=== PATIENT | female | born 1960 | race Caucasian/White ===

== ENCOUNTER 2018-11-24 10:39 | Observation (INO) ==
[2018-11-24] MEDS ORDERED: Ipratropium/Albuterol Neb 3 ML IH ONE (11:21)
[2018-11-24] MEDS ORDERED: Piperacillin/Tazobactam 3.375 GM in Water for inj. (sterile) 20 ML IVP ONE (11:21)
[2018-11-24] MEDS ORDERED: 0.9 % Sodium Chloride 1,000 ML IVC ONE (11:21)
[2018-11-24] MEDS ORDERED: methylPREDNISolone 125 MG/2 ML VIAL IVP ONE (11:21)
[2018-11-24] MEDS ORDERED: Isovue-370 500 ML BOTTLE IVP ONE (11:21)
--- NOTE | 2018-11-24 11:29 | Emergency Department Note ---
Disposition Clinical Impression: Acute exacerbation of chronic obstructive airways disease Disposition: Admitted As Inpatient Condition: Fair Time of Disposition: 17:00 General Adult HPI - General Chief complaint: ED Shortness of Breath/Dyspnea Stated complaint: dyspnea Time Seen by Provider: 11/24/18 10:56 Source: patient, family Limitations: no limitations Nursing Notes Reviewed: Yes Vital Signs Reviewed: Yes - History of Present Illness HPI Narrative: Presents with shortness of breath and she does have a history of COPD and does use home oxygen. Of note she is also been diagnosed with sleep apnea but is not wearing a sleep apnea mask. She did have surgery on her ear and had an overnight stay on November 07 and now has shortness of breath, blood-streaked clear sputum, no complaint of chest pain. No pain or swelling of the lower extremities. No orthopnea. No weight gain. Shortness of breath is worse with exertion. She does use home oxygen and she has decreased her amount of cigarette smoking. Does have rhinorrhea and sneezing. Does have complaint of blood in the stool which is red in color however she is not able to describe further than this. No fever or blurred vision. No pain or numbness of extremities. No skin rash or bruising of the skin. Social history: Smoker Pain Scale: 0 - Related Data Home Medications Medication Instructions Recorded Confirmed Budesonide/Formoterol 160/4.5 2 puff IH BID 01/29/16 11/24/18 [Symbicort 160/4.5] Albuterol Sulfate [Ventolin Hfa] 2 puff IH Q4H PRN 11/07/18 11/24/18 Previous Rx's Medication Instructions Recorded Ibuprofen [Motrin] 600 mg PO Q6HR PRN #60 tab 11/07/18 Allergies Allergy/AdvReac Type Severity Reaction Status Date / Time No Known Allergies Allergy Verified 07/02/18 13:13 Review of Systems: Constitutional: No fever Vision: No blurred vision ENT: + rhinorrhea Respiratory: + cough Allergic: + allergies/sneezing : No blood in urine GI: + blood in stool Hematologic: No bruising Dermatologic: No skin rash Musculoskeletal: No pain in the extremities Neuro: No numbness of the extremities Past Medical History - Past Medical History Medical history: Reports: arthritis, asthma, cancer, COPD, GERD, hypertension, malignancy, osteoporosis, other Surgical history: Reports: appendectomy, breast surgery, cancer surgery, cholecystectomy, herniorrhaphy, other Psychiatric history: Reports: no psych history CLINICAL CARE LEADER history: Reports: bilateral tubal ligation - Social History Smoking Status: Current every day smoker Smokeless Tobacco Status: No Alcohol use: Reports: none Drug use: Reports: none Physical Exam CONSTITUTIONAL: Alert and oriented X3, well-nourished, well appearing, does have minimal to moderate respiratory distress in the room on oxygen 2 L nasal cannula but current oxygen saturation is 99%. Head: atraumatic. EYES: PERRL, no scleral icterus. NOSE: The nose is normal in appearance without rhinorrhea RESP: Normal chest excursion with respiration; breath sounds with bilateral symmetric expiratory wheezing CARD: Regular rhythm, without murmurs, rub or gallop ABD: Non-distended; non-tender, soft,without rigidity, rebound or guarding SKIN: Normal for age and race; warm and dry; no apparent lesions EXTREMITIES: Pulses are 2 plus and equal times 4 extremities, no peripheral edema or calf muscle pain. - General Limitations: no limitations General appearance: alert, in no apparent distress Course Vital Signs Temperature 98.4 F 11/24/18 10:40 Pulse Rate 72 11/24/18 10:40 Respiratory Rate 22 11/24/18 10:40 Blood Pressure 145/73 11/24/18 10:40 O2 Sat by Pulse Oximetry 93 11/24/18 10:40 Temperature 98.7 F 11/24/18 16:07 Pulse Rate 79 11/24/18 16:07 Respiratory Rate 16 11/24/18 16:07 Blood Pressure 143/75 11/24/18 16:07 O2 Sat by Pulse Oximetry 93 11/24/18 16:07 Oxygen Delivery Oxygen Delivery Nasal Cannula Medical Decision Making - [facility] Narrative Medical decision making narrative: Patient will have a EKG, CT scan of the chest, labs for further evaluation of possible pulmonary embolism, electrolyte or CBC abnormalities and as she is dyspneic will need to be admitted. I did write for sign Medrol, DuoNeb as well as Zosyn which should also cover for pseudomonas and she did have pseudomonas UTI over the summer. She is also recently in the hospital. As she was only in overnight I will not at this point treat for MRSA however that can be expanded if necessary pending test results and further inpatient evaluation. 1130 I did review the EKG showing normal sinus rhythm with a rate of 78 and with isolated T-wave inversion in lead aVL and this is similar to previous EKG from November 07 with some flattening in lead aVL 1135 - Lab Data Result diagrams: 11/24/18 11:05 11/24/18 11:05 Lab Results 11/24/18 11/24/18 Range/Units 11:05 11:05 WBC 12.0 H (4.3-11.1) K/mcL RBC 5.36 H (3.82-4.97) M/mcL Hgb 15.3 (11.5-15.4) g/dL Hct 48.6 H (35.3-44.9) % MCV 90.7 (83.0-100.0) fL MCH 28.5 (28.0-33.3) pg MCHC 31.5 L (31.6-35.5) g/dL RDW 14.5 (11.5-14.5) % Plt Count 291 (140-400) K/mcL MPV 10.2 (9.4-12.4) fL Immature Gran % 1.5 (0-4) % Seg Neutrophils % 56.2 % Lymphocytes % 30.7 % Monocytes % 8.1 % Eosinophils % 2.9 % Basophils % 0.6 % Neutrophils # 6.8 (1.6-8.9) K/mcL Lymphocytes # 3.7 (0.6-4.6) K/mcL Monocytes # 1.0 (0.0-1.3) K/mcL Eosinophils # 0.4 (0.0-0.6) K/mcL Basophils # 0.1 (0.0-0.2) K/mcL Sodium 140 (136-145) mEq/L Potassium 4.1 (3.5-5.1) mEq/L Chloride 102 (98-107) mEq/L Carbon Dioxide 30 H (23-29) mEq/L BUN 12 (8-23) mg/dL Creatinine 0.70 (0.60-1.20) mg/dL Est GFR ( Amer) > 60 (> 60) Est GFR (Non-Af Amer) > 60 (> 60) BUN/Creatinine Ratio 17 (6-26) Glucose 103 (70-105) mg/dL Calculated Osmolality 290 (280-300) Calcium 9.2 (8.6-10.3) mg/dL Troponin I < 0.03 (< 0.04) ng/mL
[2018-11-24 12:07] LABS: Basophils # 0.1 K/mcL (0.0-0.2); Basophils % 0.6 %; Eosinophils # 0.4 K/mcL (0.0-0.6); Eosinophils % 2.9 %; Hematocrit 48.6 % (35.3-44.9); Hemoglobin 15.3 g/dL (11.5-15.4); Immature Granulocytes % 1.5 % (0-4); Lymphocytes # 3.7 K/mcL (0.6-4.6); Lymphocytes % 30.7 %; Mean Corpuscular HGB Conc 31.5 g/dL (31.6-35.5); Mean Corpuscular Hemoglobin 28.5 pg (28.0-33.3); Mean Corpuscular Volume 90.7 fL (83.0-100.0); Mean Platelet Volume 10.2 fL (9.4-12.4); Monocytes % 8.1 %; Neutrophils # 6.8 K/mcL (1.6-8.9); Platelet Count 291 K/mcL (140-400); Red Blood Count 5.36 M/mcL (3.82-4.97); Red Cell Distribution Width 14.5 % (11.5-14.5); Segmented Neutrophils % 56.2 %
[2018-11-24 12:20] LABS: BUN/Creatinine Ratio 17 (6-26); Blood Urea Nitrogen 12 mg/dL (8-23); Calcium 9.2 mg/dL (8.6-10.3); Carbon Dioxide 30 mEq/L (23-29); Chloride 102 mEq/L (98-107); Glucose 103 mg/dL (70-105); Osmolality,Calculated 290 (280-300); Potassium 4.1 mEq/L (3.5-5.1); Sodium 140 mEq/L (136-145); eGFR For African Americans > 60 (> 60); eGFR For Non-African Americans > 60 (> 60)
[2018-11-24 12:21] LABS: Troponin I < 0.03 ng/mL (< 0.04)
[2018-11-24] MEDS ORDERED: Naloxone 0.4 MG/ML INJ IVP PRN (14:30)
--- NOTE | 2018-11-24 14:36 | Internal Med History&Physical ---
Date of Encounter: 11/24/18 Time of Encounter: 14:37 Internal Medicine - H&P: HPI Chief complaint: SOB Admitted From: Home Plans for Post Hospital Care: Home History of present illness: Ms. Orr is a 58 year old female with a PMHx of COPD on home O2 2l, CARRIE not using her CPAP machine, GERD, OA and Osteoporosis who presents with a 5 day hx of worsening SOB with associated cough. Cough is productive of clear sputum. Patient states she was discharged from [facility] 10 days ago after being admitted for similar symptoms. She reports subjective fever but denies chills, chest pain, palpitations and lightheadedness.. Patient smokes less than half a pack of cigarettes daily She used to be a 2 pack a day smoker and hopes to eventually quit. Past Med Surg Social Fam HX - Past Medical History Medical history: arthritis, asthma, cancer, COPD, GERD, hypertension, malignancy, osteoporosis, other Additional medical history: pelvic pain in femal, thickened endometrium polyp, PMB. CARRIE. tobacco dependency. emphysema. history of urethral hypermobility,cystocele, relaxed vaginal outlet, uterovaginal prolapse, weak pubocervical fascia. hx of breast cancer. irregular heart beat Psychiatric history: no psych history - Past Surgical History Surgical History: appendectomy, breast surgery, cancer surgery, cholecystectomy, herniorrhaphy, other Additional surgical history: L breast lumpectomy. tubal ligation D&C. colonoscopy. mesh. mesh removal - Social History Smoking Status: Current every day smoker Smokeless Tobacco Status: No Alcohol use: none Drug use: none - Additional Family History Additional family history: Reviewed and noncontributory Internal Medicine - H&P: Meds Budesonide/Formoterol 160/4.5 [Symbicort 160/4.5] 2 puff IH BID 01/29/16 [History] Albuterol Sulfate [Ventolin Hfa] 2 puff IH Q4H PRN 11/07/18 [History] Ibuprofen [Motrin] 600 mg PO Q6HR PRN #60 tab 11/07/18 [Rx] Allergy/AdvReac Type Severity Reaction Status Date / Time No Known Allergies Allergy Verified 07/02/18 13:13 All Systems PM: A 10-system review of systems was performed and is negative for pertinent findings except as documented above in the HPI. Review of systems: GENERAL: No weight loss HEENT: No rhinorrhea, No sore throat, No ear pain or discharge, No dysphagia or odynophagia PULMONARY: Admits cough, admits chest pain, admits Sputum production, admits dyspnea on exertion CARDIOVASCULAR: No chest pain, no palpitations, No PND, No orthopnea GASTROINTESTINAL: No abdominal pain, No nausea, No vomiting, No constipation, No diarrhea, No hematemesis, No hematochezia MUSKULOSKELETAL: No edema, No swelling, No pain INTEGUMENTARY: No new skin lesions NERVOUS SYSTEM: No Dizziness, No weakness, No slurred speech, No diplopia or blurred/ loss vision, No numbness, No tinglng sensation. - Constitutional Vitals: Temp Pulse Resp BP Pulse Ox 36.9 C 76 17 127/83 100 11/24/18 10:40 11/24/18 14:04 11/24/18 14:04 11/24/18 14:04 11/24/18 14:04 Exam: GENERAL: Not in distress. Alert and Oriented HEENT: EOMI, PERRLA MOUTH: Moist oral mucosa NECK:No JVD, No lymph nodes. CHEST AND LUNGS: Bilateral scattered wheezes, no crackles HEART: S1 and S2 normal, no murmurs ABDOMEN: Soft, nontender, no organomegaly SKIN: Normal color, no rashes, no lesions EXTREMITIES: No deformity, no edema, no tenderness, no joint swelling or clubbing NEUROLOGICAL: Normal cognition, normal motor and sensory exam. Internal Med - H&P Results - Labs CBC & Chem 7: 11/24/18 11:05 11/24/18 11:05 Labs: Short CBC 11/24/18 Range/Units 11:05 WBC 12.0 H (4.3-11.1) K/mcL Hgb 15.3 (11.5-15.4) g/dL Hct 48.6 H (35.3-44.9) % Plt Count 291 (140-400) K/mcL Neutrophils # 6.8 (1.6-8.9) K/mcL BMP 11/24/18 11:05 Sodium 140 Potassium 4.1 Chloride 102 Carbon Dioxide 30 H BUN 12 Creatinine 0.70 Glucose 103 Calcium 9.2 Cardiac Enzymes 11/24/18 Range/Units 11:05 Troponin I < 0.03 (< 0.04) ng/mL - Impressions ITS Impressions Chest X-Ray 11/24/18 11:44 IMPRESSION: No acute process. D/ / Kady Crystal MD / Kayd Crystal MD Interpreting Provider: Kady Crystal MD Chest CTA 11/24/18 13:23 IMPRESSION: No acute pulmonary artery embolism. 1. Lingular bronchiectasis with endobronchial impaction potentially mucoid. D/ / Trae Mccabe MD / Trae Mccabe MD Interpreting Provider: Trae Mccabe MD - Assessment and Plan (1) Acute exacerbation of chronic obstructive airways disease Current Visit: No Status: Acute Assessment and plan: Pt with a hx of COPD presenting with worsenig SOB and productive cough. Denies fever and chills Bilateral wheezing on exam. On Oxygen via NC. 2L which is home flow rate Will give solumedrol, Azithromycin and breathing treatments. Monitor Will consider sending for pulmonary rehab after discharge. (2) CARRIE (obstructive sleep apnea) Current Visit: Yes Status: Acute Assessment and plan: Patient does not use her CPAP machine because she states it blows too much air. Patient to follow up with ui application developer as outpatient. (3) Nicotine dependence with nicotine-induced disorder Current Visit: No Status: Chronic Assessment and plan: Patient states that she is making attempts to quit and has reduced to less than half a pack a day from 2 acks. She has been counseled on a harmful effects of tobacco smoking and informed of the available options for quitting. Qualifiers: Nicotine product type: cigarettes Qualified Code(s): F17.219 - Nicotine dependence, cigarettes, with unspecified nicotine-induced disorders (4) Obesity (BMI 30-39.9) Current Visit: No Status: Chronic Assessment and plan: Counseled the weight loss options available. (5) Chronic respiratory failure with hypoxia and hypercapnia Current Visit: Yes Status: Acute Assessment and plan: Patient's COPD on home oxygen 2 L. Currently remains on 2 L on my encounter. She has COPD with CARRIE as well as obesity and most likely retains carbon dioxide at her baseline. Give breathing treatments and steroids for COPD. Monitor - Summary of Assessment and Plan Summary of Assessment and Plan: SQ Heparin - Time Spent With Patient Total time spent is greater than 50% in coordination of care (as documented) at patient's floor/unit and/or counseling patient:
[2018-11-24] MEDS: Ipratropium/Albuterol Neb 3 ML IH SCH ×2 (15:35→19:42)
[2018-11-24] MEDS ORDERED: Azithromycin 500 MG in 0.9 % Sodium Chloride 250 ML IVPB SCH (16:00)
[2018-11-24] MEDS: methylPREDNISolone 125 MG/2 ML VIAL IVP SCH ×2 (16:32→23:51)
[2018-11-25] MEDS: Ipratropium/Albuterol Neb 3 ML IH SCH ×4 (00:04→11:03)
[2018-11-25 01:40] LABS: Basophils % 0.2 %; Eosinophils % 0.1 %; Hematocrit 45.2 % (35.3-44.9); Hemoglobin 14.2 g/dL (11.5-15.4); Immature Granulocytes % 2.2 % (0-4); Lymphocytes # 1.2 K/mcL (0.6-4.6); Lymphocytes % 9.6 %; Mean Corpuscular HGB Conc 31.4 g/dL (31.6-35.5); Mean Corpuscular Hemoglobin 28.9 pg (28.0-33.3); Mean Corpuscular Volume 91.9 fL (83.0-100.0); Mean Platelet Volume 9.8 fL (9.4-12.4); Monocytes # 0.2 K/mcL (0.0-1.3); Monocytes % 1.6 %; Neutrophils # 10.3 K/mcL (1.6-8.9); Platelet Count 264 K/mcL (140-400); Red Blood Count 4.92 M/mcL (3.82-4.97); Red Cell Distribution Width 14.6 % (11.5-14.5); Segmented Neutrophils % 86.3 %; White Blood Count 11.9 K/mcL (4.3-11.1)
[2018-11-25 02:03] LABS: BUN/Creatinine Ratio 13 (6-26); Blood Urea Nitrogen 14 mg/dL (8-23); Calcium 9.2 mg/dL (8.6-10.3); Carbon Dioxide 26 mEq/L (23-29); Chloride 102 mEq/L (98-107); Glucose 273 mg/dL (70-105); Osmolality,Calculated 302 (280-300); Potassium 3.8 mEq/L (3.5-5.1); Sodium 141 mEq/L (136-145); eGFR For African Americans > 60 (> 60); eGFR For Non-African Americans 53 (> 60)
[2018-11-25] MEDS ORDERED: Acetaminophen 325 MG TABLET PO PRN (06:04)
[2018-11-25] MEDS: methylPREDNISolone 125 MG/2 ML VIAL IVP SCH (08:09)
[2018-11-25 10:52] VITALS: BP 111/62
--- NOTE | 2018-11-25 11:33 | Discharge Summary ---
- NOTES TO OUTPATIENT PROVIDER Notes to Outpatient Provider: Follow up with PCP in one week. Please quit smoking. Date of Encounter: 11/25/18 Time of Encounter: 11:00 - Discharge Diagnosis (1) Acute bronchitis Priority: Primary Status: Acute Qualifiers: Bronchitis organism: unspecified organism Qualified Code(s): J20.9 - Acute bronchitis, unspecified (2) Acute exacerbation of chronic obstructive airways disease Priority: Primary Status: Acute (3) Chronic respiratory failure with hypoxia and hypercapnia Priority: Primary Status: Acute (4) CARRIE (obstructive sleep apnea) Priority: Secondary Status: Acute (5) Nicotine dependence with nicotine-induced disorder Priority: Secondary Status: Chronic Qualifiers: Nicotine product type: cigarettes Qualified Code(s): F17.219 - Nicotine dependence, cigarettes, with unspecified nicotine-induced disorders (6) Obesity (BMI 30-39.9) Priority: Secondary Status: Chronic Hospital course: Ms. Orr is a 58 year old female with a PMHx of COPD on home O2 2l, CARRIE not using her CPAP machine, GERD, OA and Osteoporosis patient presented to ER with a 5 day hx of worsening SOB with associated cough. Cough is productive of clear sputum. In the ER her chest x-ray did not show any consolidations / acute abnormalities. Her CTA of chest showed lingular bronchiectasis with endobronchial impaction potentially mucoid. She was admitted in the hospital and started her on systemic steroids and empirical IV antibiotic. Patient is feeling much better today, back to her b aseline. She is currently breathing comfortably on 2 lit oxygen through nasal cannula which is her baseline. I did crisis counselor her to quit smoking and recommend to follow up with the business management consultant as an outpatient for her bronchiectasis. Will discharge her home in a stable condition today - Time Spent with Patient Total time spent providing and/or coordinating discharge services: - Discharge Medications Prescriptions: New levoFLOXacin [Levaquin] 500 mg PO DAILY #3 tablet Nicotine Patch [Nicoderm] 21 mg TD DAILY #30 patch.td24 predniSONE [PredniSONE] 40 mg PO DAILY #10 tablet Continued Budesonide/Formoterol 160/4.5 [Symbicort 160/4.5] 2 puff IH BID Albuterol Sulfate [Ventolin Hfa] 2 puff IH Q4H PRN PRN Reason: Shortness Of Breath Ibuprofen [Motrin] 600 mg PO Q6HR PRN #60 tab PRN Reason: Pain Home Medications: Budesonide/Formoterol 160/4.5 [Symbicort 160/4.5] 2 puff IH BID 01/29/16 [History] Albuterol Sulfate [Ventolin Hfa] 2 puff IH Q4H PRN 11/07/18 [History] Ibuprofen [Motrin] 600 mg PO Q6HR PRN #60 tab 11/07/18 [Rx] Nicotine Patch [Nicoderm] 21 mg TD DAILY #30 patch.td24 11/25/18 [Rx] levoFLOXacin [Levaquin] 500 mg PO DAILY #3 tablet 11/25/18 [Rx] predniSONE [PredniSONE] 40 mg PO DAILY #10 tablet 11/25/18 [Rx] Allergies/Adverse Reactions: Allergy/AdvReac Type Severity Reaction Status Date / Time No Known Allergies Allergy Verified 07/02/18 13:13 Date of admission: 11/24/18 14:13 Primary care physician: Simone Tran MD Consults: 11/25/18 09:43 Consult to Nurse Navigator [CONS] Routine Comment: COPD - Constitutional Vitals: Temp Pulse Resp BP Pulse Ox 98.5 F 74 16 111/62 93 11/25/18 10:50 11/25/18 10:50 11/25/18 11:03 11/25/18 10:50 11/25/18 11:03 General appearance: Present: cooperative, A&O X 3, no acute distress, answers questions appropriately Exam: Gen: Alert, awake, Oriented to time,place and person Chest: Diminished breath sounds B/L, Mild to moderate wheezing, No crackles, No rales Heart: S1S2+ RRR No murmurs Abd: Soft, NT, BS +, No organomegaly Ext: No edema, pulses are palpable, No calf tenderness Neuro : No acute focal neuro deficits noticed Skin: No rash. - Patient Status Disposition: Home, Self-Care Condition: Good Overall status at discharge: patient is back to baseline - Discharge Instructions Follow Up With: Siomne Tran MD [Primary Care Provider] - Cynthia Middleton MD [Partnered Physician] - - Diet and Activity Activity: increase activity as tolerated Diet: low salt diet
--- NOTE | 2018-11-26 09:47 | Electrocardiograph Report ---
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
== END 2018-11-25 12:45 | disposition home or self-care (01) ==
LOC: 3BNU 10:39 → EMEROOARM 10:39 → SUATTDRO 14:13 → 3BNU 15:00
PROVIDERS: ADMIT Internal Medicine; ATTEND Family Medicine

== ENCOUNTER 2019-02-21 18:28 | Observation (INO) ==
[2019-02-21] MEDS ORDERED: Ipratropium/Albuterol Neb 3 ML IH ONE ×2 (18:49→20:18)
[2019-02-21] MEDS ORDERED: Albuterol 2.5 MG/3 ML NEBULIZER IH ONE (18:49)
[2019-02-21] MEDS ORDERED: methylPREDNISolone 125 MG/2 ML VIAL IVP ONE (18:49)
[2019-02-21 19:48] LABS: Basophils % 0.4 %; Eosinophils # 0.1 K/mcL (0.0-0.6); Eosinophils % 1.3 %; Hemoglobin 15.3 g/dL (11.5-15.4); Immature Granulocytes % 1.5 % (0-4); Lymphocytes # 1.8 K/mcL (0.6-4.6); Lymphocytes % 21.9 %; Mean Corpuscular HGB Conc 32.6 g/dL (31.6-35.5); Mean Corpuscular Hemoglobin 29.5 pg (28.0-33.3); Mean Corpuscular Volume 90.7 fL (83.0-100.0); Mean Platelet Volume 9.7 fL (9.4-12.4); Monocytes # 0.2 K/mcL (0.0-1.3); Monocytes % 1.9 %; Neutrophils # 5.8 K/mcL (1.6-8.9); Platelet Count 282 K/mcL (140-400); Red Blood Count 5.18 M/mcL (3.82-4.97); Red Cell Distribution Width 14.8 % (11.5-14.5)
[2019-02-21 19:57] LABS: INR 0.9; Prothrombin Time 9.9 Seconds (9.4-12.1)
[2019-02-21 20:10] LABS: Alanine Aminotransferase 34 Units/L (7-52); Albumin 3.8 g/dL (3.5-5.7); Albumin/Globulin Ratio 1.4 (1.1-2.2); Alkaline Phosphatase 97 Units/L (34-104); Aspartate Amino Transferase 25 Units/L (13-39); BUN/Creatinine Ratio 19 (6-26); Bilirubin,Direct 0.1 mg/dL (0.0-0.2); Bilirubin,Indirect 0.2 mg/dL (0.0-1.0); Bilirubin,Total 0.3 mg/dL (0.3-1.0); Blood Urea Nitrogen 14 mg/dL (8-23); Calcium 9.2 mg/dL (8.6-10.3); Carbon Dioxide 29 mEq/L (23-29); Chloride 105 mEq/L (98-107); Globulin 2.8 g/dL (2.4-3.5); Glucose 139 mg/dL (70-105); Osmolality,Calculated 293 (280-300); Potassium 4.1 mEq/L (3.5-5.1); Sodium 140 mEq/L (136-145); Total Protein 6.6 g/dL (6.4-8.9); eGFR For African Americans > 60 (> 60); eGFR For Non-African Americans > 60 (> 60)
[2019-02-21 20:11] LABS: Troponin I < 0.03 ng/mL (< 0.04)
[2019-02-21] MEDS ORDERED: Ondansetron 4 MG/2 ML VIAL IVP PRN (22:33)
[2019-02-21] MEDS ORDERED: Acetaminophen 325 MG TABLET PO PRN (22:33)
[2019-02-21] MEDS ORDERED: GuaiFENesin Liq 200 MG/10 ML UDC PO PRN (22:33)
[2019-02-22] MEDS: Ipratropium/Albuterol Neb 3 ML IH SCH ×7 (00:05→19:53)
[2019-02-22] MEDS: Ringers Solution, Lactated 1,000 ML IVC SCH ×2 (00:56→19:15)
[2019-02-22] MEDS: MethylPREDNISolone 40 MG/ML VIAL IVP SCH ×2 (05:25→17:21)
[2019-02-22] MEDS: *HR* Heparin 5,000 UNIT/ML VIAL SQ SCH ×2 (05:25→17:21)
[2019-02-22] MEDS: Cholecalciferol (D-3) 1,000 UNIT (25MCG) TABLET PO SCH (08:57)
[2019-02-22] MEDS: Azithromycin 500 MG in D5% in Water 250 ML IVPB SCH (08:57)
[2019-02-22] MEDS: Budesonide/Formoterol 160/4.5 1 PUFF INH IH SCH ×2 (11:49→19:53)
[2019-02-23] MEDS: Ipratropium/Albuterol Neb 3 ML IH SCH ×4 (00:25→11:17)
[2019-02-23] MEDS: MethylPREDNISolone 40 MG/ML VIAL IVP SCH (05:14)
[2019-02-23] MEDS: *HR* Heparin 5,000 UNIT/ML VIAL SQ SCH (05:14)
[2019-02-23] MEDS: Budesonide/Formoterol 160/4.5 1 PUFF INH IH SCH (07:21)
[2019-02-23 07:31] VITALS: BP 146/77
[2019-02-23] MEDS: Azithromycin 500 MG in D5% in Water 250 ML IVPB SCH (08:34)
[2019-02-23] MEDS: Cholecalciferol (D-3) 1,000 UNIT (25MCG) TABLET PO SCH (08:35)
[2019-02-23 09:33] LABS: Adenovirus Not Detected (Not Detect); Bordetella Pertussis Not Detected (Not Detect); Chlamydophila pneumoniae Not Detected (Not Detect); Coronavirus 229E Not Detected (Not Detect); Coronavirus HKU1 DETECTED (Not Detect); Coronavirus NL63 Not Detected (Not Detect); Coronavirus OC43 Not Detected (Not Detect); Human Metapneumovirus Not Detected (Not Detect); Human Rhinovirus/Enterovirus Not Detected (Not Detect); Influenza A Subtype 2009 H1 Not Detected (Not Detect); Influenza A Untypeable Not Detected (Not Detect); Influenza B Not Detected (Not Detect); Mycoplasma pneumoniae Not Detected (Not Detect); Parainfluenza Virus 1 Not Detected (Not Detect); Parainfluenza Virus 2 Not Detected (Not Detect); Parainfluenza Virus 3 Not Detected (Not Detect); Parainfluenza Virus 4 Not Detected (Not Detect); Respiratory Syncytial Virus Not Detected (Not Detect)
== END 2019-02-23 11:32 | disposition home or self-care (01) ==
LOC: EMEROOARM 18:28 → 3BNU 18:28 → SUATTDRO 21:56 → 3BNU 23:40
PROVIDERS: ADMIT Internal Medicine; ATTEND Internal Medicine

== ENCOUNTER 2019-05-03 21:38 | Observation (INO) ==
[2019-05-03] MEDS ORDERED: Ipratropium/Albuterol Neb 3 ML IH ONE (22:14)
[2019-05-03 22:45] LABS: Basophils % 0.6 %; Eosinophils % 0.3 %; Hematocrit 44.9 % (35.3-44.9); Hemoglobin 13.9 g/dL (11.5-15.4); Immature Granulocytes % 0.6 % (0-4); Lymphocytes # 1.1 K/mcL (0.6-4.6); Lymphocytes % 16.9 %; Mean Corpuscular Hemoglobin 28.3 pg (28.0-33.3); Mean Corpuscular Volume 91.4 fL (83.0-100.0); Mean Platelet Volume 10.2 fL (9.4-12.4); Monocytes # 0.6 K/mcL (0.0-1.3); Monocytes % 10.1 %; Neutrophils # 4.5 K/mcL (1.6-8.9); Platelet Count 204 K/mcL (140-400); Red Blood Count 4.91 M/mcL (3.82-4.97); Red Cell Distribution Width 14.4 % (11.5-14.5); Segmented Neutrophils % 71.5 %; White Blood Count 6.2 K/mcL (4.3-11.1)
[2019-05-03 23:06] LABS: BUN/Creatinine Ratio 16 (6-26); Blood Urea Nitrogen 14 mg/dL (8-23); Calcium 8.5 mg/dL (8.6-10.3); Carbon Dioxide 26 mEq/L (23-29); Chloride 105 mEq/L (98-107); Glucose 114 mg/dL (70-105); Osmolality,Calculated 289 (280-300); Sodium 139 mEq/L (136-145); eGFR For African Americans > 60 (> 60); eGFR For Non-African Americans > 60 (> 60)
[2019-05-03 23:08] LABS: Troponin I < 0.03 ng/mL (< 0.04)
[2019-05-04] MEDS ORDERED: Naloxone 0.4 MG/ML INJ IVP PRN (01:55)
[2019-05-04] MEDS: Acetaminophen 325 MG TABLET PO PRN ×2 (02:44→10:52)
[2019-05-04] MEDS: Levalbuterol Neb 1.25 MG/3 ML IH SCH ×4 (04:22→22:06)
[2019-05-04] MEDS: *HR* Enoxaparin 40 MG/0.4 ML SYRINGE SQ SCH (06:58)
[2019-05-04] MEDS: predniSONE 20 MG TABLET PO SCH (09:26)
[2019-05-04] MEDS: Cholecalciferol (D-3) 1,000 UNIT (25MCG) TABLET PO SCH (09:26)
[2019-05-04] MEDS: Budesonide/Formoterol 160/4.5 1 PUFF INH IH SCH ×2 (10:14→22:06)
[2019-05-04] MEDS: Tiotropium 18 MCG inhalation IH SCH (10:14)
[2019-05-05] MEDS: Levalbuterol Neb 1.25 MG/3 ML IH SCH ×2 (03:40→10:00)
[2019-05-05] MEDS: Acetaminophen 325 MG TABLET PO PRN (05:44)
[2019-05-05] MEDS: *HR* Enoxaparin 40 MG/0.4 ML SYRINGE SQ SCH (05:44)
[2019-05-05 06:42] VITALS: BP 118/70
[2019-05-05] MEDS: predniSONE 20 MG TABLET PO SCH (09:07)
[2019-05-05] MEDS: Cholecalciferol (D-3) 1,000 UNIT (25MCG) TABLET PO SCH (09:07)
[2019-05-05] MEDS: Budesonide/Formoterol 160/4.5 1 PUFF INH IH SCH (10:00)
[2019-05-05] MEDS: Tiotropium 18 MCG inhalation IH SCH (10:08)
== END 2019-05-05 10:44 | disposition home or self-care (01) ==
LOC: EMEROOARM 21:38 → 3ANU 21:38 → SUATTDRO 05-04 00:24 → 3ANU 05-04 01:28
PROVIDERS: ADMIT Internal Medicine; ATTEND Student in an Organized Health Care Education/Training Program

== ENCOUNTER 2019-05-16 09:28 | Observation (INO) ==
[2019-05-16] MEDS ORDERED: Ipratropium/Albuterol Neb 3 ML IH ONE (10:00)
[2019-05-16] MEDS ORDERED: 0.9 % Sodium Chloride 1,000 ML IV ONE (10:00)
[2019-05-16 10:47] LABS: Basophils # 0.1 K/mcL (0.0-0.2); Basophils % 0.5 %; Eosinophils # 0.2 K/mcL (0.0-0.6); Eosinophils % 1.3 %; Hematocrit 42.4 % (35.3-44.9); Hemoglobin 13.2 g/dL (11.5-15.4); Immature Granulocytes % 1.2 % (0-4); Lymphocytes # 3.4 K/mcL (0.6-4.6); Lymphocytes % 20.3 %; Mean Corpuscular HGB Conc 31.1 g/dL (31.6-35.5); Mean Platelet Volume 9.1 fL (9.4-12.4); Monocytes # 1.4 K/mcL (0.0-1.3); Monocytes % 8.3 %; Neutrophils # 11.5 K/mcL (1.6-8.9); Platelet Count 258 K/mcL (140-400); Red Blood Count 4.71 M/mcL (3.82-4.97); Red Cell Distribution Width 15.1 % (11.5-14.5); Segmented Neutrophils % 68.4 %; White Blood Count 16.8 K/mcL (4.3-11.1)
[2019-05-16 11:06] LABS: Alanine Aminotransferase 12 Units/L (7-52); Albumin 3.4 g/dL (3.5-5.7); Albumin/Globulin Ratio 1.2 (1.1-2.2); Alkaline Phosphatase 75 Units/L (34-104); Aspartate Amino Transferase 8 Units/L (13-39); BUN/Creatinine Ratio 20 (6-26); Bilirubin,Total 0.8 mg/dL (0.3-1.0); Blood Urea Nitrogen 14 mg/dL (8-23); Calcium 8.8 mg/dL (8.6-10.3); Carbon Dioxide 27 mEq/L (23-29); Chloride 106 mEq/L (98-107); Globulin 2.8 g/dL (2.4-3.5); Glucose 104 mg/dL (70-105); Osmolality,Calculated 287 (280-300); Potassium 3.7 mEq/L (3.5-5.1); Sodium 138 mEq/L (136-145); Total Protein 6.2 g/dL (6.4-8.9); Troponin I < 0.03 ng/mL (< 0.04); eGFR For African Americans > 60 (> 60); eGFR For Non-African Americans > 60 (> 60)
[2019-05-16] MEDS ORDERED: Piperacillin/Tazobactam 3.375 GM in Water for inj. (sterile) 20 ML IVP ONE (12:27)
[2019-05-16] MEDS ORDERED: Ondansetron 4 MG/2 ML VIAL IVP PRN (12:39)
[2019-05-16] MEDS ORDERED: Naloxone 0.4 MG/ML INJ IVP PRN (12:39)
[2019-05-16] MEDS: Piperacillin/Tazobactam 3.375 GM in 0.9 % Sodium Chloride Mini Bag 100 ML IVPB SCH ×2 (14:50→21:22)
[2019-05-16] MEDS: 0.9 % Sodium Chloride w KCl 20 MEQ/1,000 ML MLS IVC SCH (15:05)
[2019-05-16] MEDS: Ipratropium/Albuterol Neb 3 ML IH SCH ×2 (15:35→22:02)
[2019-05-16 17:40] LABS: Adenovirus Not Detected (Not Detect); Coronavirus 229E Not Detected (Not Detect); Coronavirus HKU1 Not Detected (Not Detect); Coronavirus NL63 Not Detected (Not Detect); Coronavirus OC43 Not Detected (Not Detect); Human Metapneumovirus Not Detected (Not Detect); Human Rhinovirus/Enterovirus Not Detected (Not Detect)
[2019-05-16 17:42] LABS: Bordetella Pertussis Not Detected (Not Detect); Chlamydophila pneumoniae Not Detected (Not Detect); Influenza A Subtype 2009 H1 DETECTED (Not Detect); Influenza B Not Detected (Not Detect); Mycoplasma pneumoniae Not Detected (Not Detect); Parainfluenza Virus 1 Not Detected (Not Detect); Parainfluenza Virus 2 Not Detected (Not Detect); Parainfluenza Virus 3 Not Detected (Not Detect); Parainfluenza Virus 4 Not Detected (Not Detect); Respiratory Syncytial Virus Not Detected (Not Detect)
[2019-05-16] MEDS ORDERED: *HR* Heparin 5,000 UNIT/ML VIAL SQ SCH (22:00)
[2019-05-16] MEDS: Budesonide/Formoterol 160/4.5 1 PUFF INH IH SCH (22:02)
[2019-05-17 03:07] LABS: Basophils # 0.1 K/mcL (0.0-0.2); Basophils % 0.5 %; Eosinophils # 0.2 K/mcL (0.0-0.6); Eosinophils % 1.3 %; Hematocrit 38.5 % (35.3-44.9); Hemoglobin 11.9 g/dL (11.5-15.4); Immature Granulocytes % 0.9 % (0-4); Lymphocytes # 2.4 K/mcL (0.6-4.6); Lymphocytes % 17.1 %; Mean Corpuscular HGB Conc 30.9 g/dL (31.6-35.5); Mean Corpuscular Hemoglobin 28.4 pg (28.0-33.3); Mean Corpuscular Volume 91.9 fL (83.0-100.0); Mean Platelet Volume 9.8 fL (9.4-12.4); Monocytes # 1.2 K/mcL (0.0-1.3); Monocytes % 8.2 %; Neutrophils # 10.2 K/mcL (1.6-8.9); Platelet Count 209 K/mcL (140-400); Red Blood Count 4.19 M/mcL (3.82-4.97); Red Cell Distribution Width 15.1 % (11.5-14.5); White Blood Count 14.2 K/mcL (4.3-11.1)
[2019-05-17] MEDS: Ipratropium/Albuterol Neb 3 ML IH SCH ×3 (03:07→22:42)
[2019-05-17 03:24] LABS: BUN/Creatinine Ratio 14 (6-26); Blood Urea Nitrogen 10 mg/dL (8-23); Calcium 8.3 mg/dL (8.6-10.3); Carbon Dioxide 25 mEq/L (23-29); Chloride 108 mEq/L (98-107); Glucose 115 mg/dL (70-105); Osmolality,Calculated 286 (280-300); Potassium 3.9 mEq/L (3.5-5.1); Sodium 138 mEq/L (136-145); eGFR For African Americans > 60 (> 60); eGFR For Non-African Americans > 60 (> 60)
[2019-05-17] MEDS: 0.9 % Sodium Chloride w KCl 20 MEQ/1,000 ML MLS IVC SCH (06:04)
[2019-05-17] MEDS: Piperacillin/Tazobactam 3.375 GM in 0.9 % Sodium Chloride Mini Bag 100 ML IVPB SCH ×3 (06:05→21:59)
[2019-05-17] MEDS: Budesonide/Formoterol 160/4.5 1 PUFF INH IH SCH ×2 (16:30→22:42)
[2019-05-17] MEDS ORDERED: Acetaminophen 325 MG TABLET PO ONE (21:15)
[2019-05-18] MEDS: Ipratropium/Albuterol Neb 3 ML IH SCH ×4 (03:34→21:38)
[2019-05-18] MEDS: Piperacillin/Tazobactam 3.375 GM in 0.9 % Sodium Chloride Mini Bag 100 ML IVPB SCH ×3 (04:47→22:33)
[2019-05-18 07:30] LABS: Hematocrit 37.8 % (35.3-44.9); Hemoglobin 11.9 g/dL (11.5-15.4); Mean Corpuscular HGB Conc 31.5 g/dL (31.6-35.5); Mean Corpuscular Hemoglobin 28.8 pg (28.0-33.3); Mean Corpuscular Volume 91.5 fL (83.0-100.0); Mean Platelet Volume 10.4 fL (9.4-12.4); Platelet Count 192 K/mcL (140-400); Red Blood Count 4.13 M/mcL (3.82-4.97)
[2019-05-18 07:45] LABS: BUN/Creatinine Ratio 15 (6-26); Blood Urea Nitrogen 9 mg/dL (8-23); Calcium 8.9 mg/dL (8.6-10.3); Carbon Dioxide 25 mEq/L (23-29); Chloride 108 mEq/L (98-107); Glucose 111 mg/dL (70-105); Magnesium 2.2 mg/dL (1.6-2.6); Osmolality,Calculated 287 (280-300); Sodium 139 mEq/L (136-145); eGFR For African Americans > 60 (> 60); eGFR For Non-African Americans > 60 (> 60)
[2019-05-18] MEDS: Budesonide/Formoterol 160/4.5 1 PUFF INH IH SCH ×2 (09:56→21:38)
[2019-05-18] MEDS ORDERED: Isovue-370 500 ML BOTTLE IVP ONE (10:16)
[2019-05-18] MEDS: Nystatin SUSP 5 ML UD.LIQ PO SCH ×3 (13:38→22:32)
[2019-05-19] MEDS: Ipratropium/Albuterol Neb 3 ML IH SCH ×3 (04:19→15:58)
[2019-05-19] MEDS: Piperacillin/Tazobactam 3.375 GM in 0.9 % Sodium Chloride Mini Bag 100 ML IVPB SCH ×2 (05:58→15:20)
[2019-05-19 06:03] LABS: Hematocrit 38.7 % (35.3-44.9); Hemoglobin 11.7 g/dL (11.5-15.4); Mean Corpuscular HGB Conc 30.2 g/dL (31.6-35.5); Mean Corpuscular Volume 92.6 fL (83.0-100.0); Platelet Count 243 K/mcL (140-400); Red Blood Count 4.18 M/mcL (3.82-4.97); White Blood Count 12.6 K/mcL (4.3-11.1)
[2019-05-19 06:22] LABS: BUN/Creatinine Ratio 16 (6-26); Blood Urea Nitrogen 13 mg/dL (8-23); Carbon Dioxide 27 mEq/L (23-29); Chloride 106 mEq/L (98-107); Glucose 109 mg/dL (70-105); Osmolality,Calculated 291 (280-300); Potassium 4.1 mEq/L (3.5-5.1); Sodium 140 mEq/L (136-145); eGFR For African Americans > 60 (> 60); eGFR For Non-African Americans > 60 (> 60)
[2019-05-19] MEDS ORDERED: Nicotine 21 MG PATCH.TD24 TD SCH (09:00)
[2019-05-19] MEDS ORDERED: hydroCHLOROthiazide 25 MG TABLET PO SCH (09:00)
[2019-05-19] MEDS: Nystatin SUSP 5 ML UD.LIQ PO SCH ×2 (10:24→12:58)
[2019-05-19] MEDS: Budesonide/Formoterol 160/4.5 1 PUFF INH IH SCH (10:25)
[2019-05-19 14:56] VITALS: BP 97/61
[2019-05-19] MEDS ORDERED: Aminoglycoside Consult 1 EACH MC ONE (16:13)
== END 2019-05-19 16:14 | disposition home or self-care (01) ==
LOC: 3BNU 09:28 → EMEROOARM 09:28 → SUATTDRO 12:39 → 3BNU 13:29
PROVIDERS: ADMIT Internal Medicine; ATTEND Internal Medicine

== ENCOUNTER 2020-07-19 09:22 | Observation (INO) ==
[2020-07-19] MEDS ORDERED: methylPREDNISolone 125 MG/2 ML VIAL IVP ONE (09:54)
[2020-07-19] MEDS ORDERED: Ipratropium/Albuterol Neb 3 ML IH ONE (09:54)
[2020-07-19 10:16] LABS: Bilirubin,Urine Small (Negative); Blood,Urine Small (Negative); Clarity,Urine Clear (Clear); Color,Urine Yellow (Yellow); Glucose,Urine (UA) Normal (Normal); Ketones,Urine Negative (Negative); Leukocyte Esterase,Urine Negative (Negative); Nitrite,Urine Negative (Negative); Protein,Urine 30 mg/dL (Neg-Trace); Specific Gravity,Urine >= 1.030 (1.010-1.025); Urobilinogen,Urine Normal (Normal)
[2020-07-19 10:19] LABS: Bacteria,Urine Few per hpf (None-Few); Squamous Epithelial Cell,Urine Few per hpf (None-Few); WBC,Urine 0-3 per hpf (0-3)
[2020-07-19 10:20] LABS: Mucus,Urine Few per lpf (None-Few); RBC,Urine 0-3 per hpf (0-3)
[2020-07-19 10:26] LABS: Basophils # 0.1 K/mcL (0.0-0.2); Basophils % 1.2 %; Eosinophils # 0.1 K/mcL (0.0-0.6); Eosinophils % 1.8 %; Hematocrit 46.1 % (35.3-44.9); Hemoglobin 14.8 g/dL (11.5-15.4); Immature Granulocytes % 0.5 % (0-4); Lymphocytes # 1.8 K/mcL (0.6-4.6); Lymphocytes % 23.3 %; Mean Corpuscular HGB Conc 32.1 g/dL (31.6-35.5); Mean Corpuscular Hemoglobin 29.9 pg (28.0-33.3); Mean Corpuscular Volume 93.1 fL (83.0-100.0); Mean Platelet Volume 9.9 fL (9.4-12.4); Monocytes # 0.8 K/mcL (0.0-1.3); Monocytes % 10.8 %; Neutrophils # 4.9 K/mcL (1.6-8.9); Platelet Count 254 K/mcL (140-400); Red Blood Count 4.95 M/mcL (3.82-4.97); Red Cell Distribution Width 14.2 % (11.5-14.5); Segmented Neutrophils % 62.4 %; White Blood Count 7.8 K/mcL (4.3-11.1)
[2020-07-19 10:57] LABS: Alanine Aminotransferase 12 Units/L (7-52); Albumin 3.9 g/dL (3.5-5.7); Albumin/Globulin Ratio 1.3 (1.1-2.2); Alkaline Phosphatase 99 Units/L (34-104); Aspartate Amino Transferase 12 Units/L (13-39); BUN/Creatinine Ratio 19 (6-26); Bilirubin,Direct 0.1 mg/dL (0.0-0.2); Bilirubin,Indirect 0.4 mg/dL (0.0-1.0); Bilirubin,Total 0.5 mg/dL (0.3-1.0); Blood Urea Nitrogen 15 mg/dL (8-23); Calcium 9.2 mg/dL (8.6-10.3); Carbon Dioxide 26 mEq/L (23-29); Chloride 105 mEq/L (98-107); Globulin 2.9 g/dL (2.4-3.5); Glucose 102 mg/dL (70-105); Osmolality,Calculated 289 (280-300); Potassium 4.2 mEq/L (3.5-5.1); Sodium 139 mEq/L (136-145); Total Protein 6.8 g/dL (6.4-8.9); Troponin I < 0.03 ng/mL (< 0.04); eGFR For African Americans > 60 (> 60); eGFR For Non-African Americans > 60 (> 60)
[2020-07-19] MEDS ORDERED: Naloxone 0.4 MG/ML INJ IVP PRN (13:16)
[2020-07-19] MEDS ORDERED: Melatonin 3 MG TABLET PO PRN (13:16)
[2020-07-19] MEDS ORDERED: Ibuprofen 600 MG TABLET PO PRN (14:49)
[2020-07-19] MEDS ORDERED: tiZANidine 4 MG TABLET PO PRN (14:49)
[2020-07-19] MEDS: Ipratropium/Albuterol Neb 3 ML IH SCH ×3 (15:02→23:50)
[2020-07-19] MEDS ORDERED: Nicotine 21 MG PATCH.TD24 TD SCH (16:15)
[2020-07-19] MEDS: Nystatin SUSP 5 ML UD.LIQ PO SCH ×2 (16:38→20:24)
[2020-07-19] MEDS ORDERED: Budesonide/Formoterol 160/4.5 1 PUFF INH IH SCH (22:00)
[2020-07-20] MEDS: Ipratropium/Albuterol Neb 3 ML IH SCH (04:14)
[2020-07-20 05:01] LABS: Basophils % 0.5 %; Hematocrit 43.6 % (35.3-44.9); Hemoglobin 13.8 g/dL (11.5-15.4); Immature Granulocytes % 1.2 % (0-4); Lymphocytes % 13.6 %; Mean Corpuscular HGB Conc 31.7 g/dL (31.6-35.5); Mean Corpuscular Hemoglobin 29.7 pg (28.0-33.3); Monocytes # 0.2 K/mcL (0.0-1.3); Monocytes % 3.3 %; Neutrophils # 5.9 K/mcL (1.6-8.9); Platelet Count 250 K/mcL (140-400); Red Blood Count 4.64 M/mcL (3.82-4.97); Red Cell Distribution Width 13.8 % (11.5-14.5); Segmented Neutrophils % 81.4 %; White Blood Count 7.3 K/mcL (4.3-11.1)
[2020-07-20 05:21] LABS: BUN/Creatinine Ratio 21 (6-26); Blood Urea Nitrogen 15 mg/dL (8-23); Carbon Dioxide 28 mEq/L (23-29); Chloride 105 mEq/L (98-107); Glucose 153 mg/dL (70-105); Osmolality,Calculated 292 (280-300); Potassium 4.4 mEq/L (3.5-5.1); Sodium 139 mEq/L (136-145); eGFR For African Americans > 60 (> 60); eGFR For Non-African Americans > 60 (> 60)
[2020-07-20 06:53] VITALS: BP 133/68
[2020-07-20] MEDS ORDERED: predniSONE 20 MG TABLET PO SCH (09:00)
[2020-07-20] MEDS ORDERED: Azithromycin 250 MG TABLET PO SCH (09:00)
== END 2020-07-20 08:44 | disposition left against medical advice (07) ==
LOC: EMEROOARM 09:22 → 3ANU 09:22 → SUATTDRO 14:26 → 3ANU 14:51
PROVIDERS: ADMIT Internal Medicine; ATTEND Internal Medicine